=== PATIENT | female | born 1975 | race African-American/Black ===

== ENCOUNTER 2024-10-05 10:39 | Emergency (ER) | payer BC, MEDICAID ==
[~2024-10-05] VITALS: Ht 162.6 cm; Wt 75.0 kg
[2024-10-05 11:09] VITALS: O2SAT 98
[2024-10-05] MEDS ORDERED: IBUP-2028 MT (12:37)
[2024-10-05 13:32] VITALS: BP 176/100; PULSE 94; RESP 16; TEMP 37.2; O2SAT 98
== END 2024-10-05 13:45 | disposition home or self-care (01) ==
LOC: ER 10:39
DX: M79.671 Pain in right foot (principal)
CPT/HCPCS: 73630; 99283; A6449

== ENCOUNTER 2024-10-05 13:32 | Emergency (ER) | payer BC, MEDICAID ==
[~2024-10-05] VITALS: Ht 162.6 cm; Wt 74.0 kg
[~2024-10-05 13:32] MED LIST: IBUP-2028 MT
[2024-10-05 14:55] VITALS: O2SAT 97
[2024-10-05 16:22] VITALS: BP 192/120; PULSE 85; RESP 16; TEMP 36.6; O2SAT 96
== END 2024-10-05 16:33 | disposition home or self-care (01) ==
LOC: ER 13:32
DX: S93.402A Sprain of unspecified ligament of left ankle, initial encounter (principal); W19.XXXA Unspecified fall, initial encounter; Y93.89 Activity, other specified; Y92.89 Other specified places as the place of occurrence of the external cause; Y99.8 Other external cause status
CPT/HCPCS: 73610; 99283